=== PATIENT | male | born 1980 | race Caucasian/White ===

== ENCOUNTER 2017-07-11 12:38 | Emergency (ER) | payer SELFPAY ==
[~2017-07-11] VITALS: Ht 180.3 cm; Wt 61.2 kg
[~2017-07-11 12:38] MED LIST: BACTRIM DS 8001 TA1 PO; BIAXIN500 MG PO; CATAFLAM50 MG PO; CLEOCIN HCL300 MG PO; COMPAZINE10 MG PO; LOMOTIL 0.025 M1 TA1 PO; MOTRIN800 MG PO; NKHM; TYLENOL W/CODEI1 TA2 PO; VICODIN 5/500 505 MG PO; ZOFRAN ODT4 MG SL
[2017-07-11] MEDS ORDERED: CEPHALEXIN500 M1 PO (13:43)
== END 2017-07-11 13:37 | disposition home or self-care (01) ==
LOC: ED 12:38
DX: S61.411A Laceration without foreign body of right hand, initial encounter (principal); F17.200 Nicotine dependence, unspecified, uncomplicated; W22.8XXA Striking against or struck by other objects, initial encounter; Y93.89 Activity, other specified; Y92.89 Other specified places as the place of occurrence of the external cause; Y99.8 Other external cause status